=== PATIENT | male | born 1935 | race Caucasian/White ===

== ENCOUNTER 2016-10-21 15:48 | Inpatient (IN) | payer MEDICARE, OTHER ==
[~2016-10-21] VITALS: Ht 170.2 cm; Wt 79.4 kg
--- NOTE | ~2016-10-21 | HP ---
PATIENT: TIFFANY RODRIGUEZ MEDICAL RECORD: [id number] ACCOUNT: [id number] LOCATION:[address] : 35 ADMISSION DATE: 10/21/16 HISTORY AND PHYSICAL EXAMINATION ADMITTING PHYSICIAN: Dr. Frank Mcfarland. REASON FOR ADMISSION: Vomiting with hematemesis and fever. HISTORY OF PRESENT ILLNESS: The patient is an 81-year-old male of Dr. Mcfarland. He presented to on-call physician today, with complaints of being very nauseated. This morning, he vomited 3-4 times, his said he had some blood streaking in the last 2 vomitus episodes. He has had some vague upper abdominal pain as well, but no melena or bloody diarrhea. He has had increasing cough as well and fever for approximately 100 degrees Fahrenheit today. He just does not feel well and he really had difficulty getting out of the chair to come to the exam room. He has had a remote cholecystectomy and said this is unusual for him. He denies ever having a peptic ulcer before. He denies taking lots of anti-inflammatories as well. In the office, he noted to be mildly anemic with hemoglobin of 11. His creatinine was mildly elevated as well. The patient's pressure was 100/60 and it was mildly tachycardic. He is now admitted for further evaluation of hemetemesis and rule out gastrointestinal bleed. PAST MEDICAL HISTORY: Trigeminal neuralgia, CAD, osteoporosis, hyperlipidemia, IBS, diverticulosis, BPH, with history of pneumonia, adult sleep apnea, inoperable CAD, COPD. SURGICAL HISTORY: Appendectomy, hernia repair, tonsillectomy, cholecystectomy, history of cardiac catheterization in September 2012 with diffusely diseased LAD throughout its entire course, right coronary was 60% mid vessel lesion treated medically. Last echo showed an EF of 58%. HOME MEDICATIONS: Pravastatin 40 mg at h.s., terazosin 5 mg a day, levothyroxine 75 mcg p.o. daily, Tegretol 100 mg p.o. q. 12 hours, gabapentin 300 mg p.o. b.i.d., aspirin 325 mg a day, metoprolol XL 25 mg a day, isosorbide dinitrate 60 mg p.o. daily. SOCIAL HISTORY: The patient is . He never smoked, do not drink alcohol. FAMILY HISTORY: Father of stroke. Mother of old age. REVIEW OF SYSTEMS: GENERAL: He has been very fatigued today and had low-grade fever and just has not felt well. HEENT: No recent visual change, sinus congestion, or sore throat. He has chronic hearing difficulty. RESPIRATORY: He has chronic productive cough. He said Dr. Mcfarland says he has COPD. He has had no hemoptysis. Minimal sputum production. CARDIAC: No exertional rest chest pain or increasing edema. Denies palpitations recently. GASTROINTESTINAL: Nausea with recurrent vomiting for 4-5 times this morning that was fairly severe, with some blood streaked vomitus noted by his . Denies lower abdominal pain or constipation, diarrhea. GENITOURINARY: Nocturia once nightly. ENDOCRINE: Denies polyuria, polydipsia, heat or cold intolerance. HISTORY AND PHYSICAL [id number] TIFFANY RODRIGUEZ H NEUROLOGIC: Denies history of stroke that his memory is not as good as it used to be. Denies history of seizure. INTEGUMENTARY: No recent rash or itching. PSYCHIATRIC: Denies depressed mood. PHYSICAL EXAMINATION: VITAL SIGNS: Temperature 98.1, pulse 68 and regular, respirations are 16, blood pressure 115/49 with a sat of 90% on room air. GENERAL: The patient seems somewhat confused and ill appearing. HEENT: Eyes are clear. Sclerae nonicteric. Oropharynx shows dry mucous membranes. NECK: Supple, without bruits. CHEST: Clear. HEART: Regular rate without murmur or gallop. ABDOMEN: Mildly obese, soft, minimally tender in the epigastrium. Bowel sounds are active. EXTREMITIES: No CC and E. SKIN: Unremarkable. NEUROLOGIC: He is oriented to person, place, and time. Cranial nerves grossly intact. Gait was not tested due to his weakness. LABORATORY DATA: Showed hemoglobin of 11, creatinine of 1.5. UA, chest x-ray, acute abdominal series are pending. ASSESSMENT: 1. Hematemesis. 2. Gastroenteritis? 3. Anemia, chronic. 4. Hypertension, hyperlipidemia, inoperable CAD, trigeminal neuralgia, osteoporosis, obstructive sleep apnea, irritable bowel syndrome, diverticulosis. PLAN: The patient will be admitted to check serial H&H and transfuse if necessary, IV Protonix and GI consult if indicated. TRANSINT:[id number] Voice Confirmation ID: [id number] DOCUMENT ID: [id number] LEAH AVALOS MD CC: [id number] DICTATION DATE: 10/21/16 165 TELEPHOTO ENGINEER: 10/21/161950 ADM IN [place] [id number] [place] [id number]
[~2016-10-21 15:48] MED LIST: ASPIRIN325 MG PO; ATROVENT 0.06%15 ML NS; CETIRIZINE HCL5 MG PO; GABAPENTIN100 MG PO; HYDROCODONE-APA1 TAB PO; HYTRIN5 MG PO; ISOSORBIDE MONO60 M1 PO; LEVOTHYROXINE75 MCG PO; NITROSTAT0.4 MG SL; PRAVACHOL40 MG PO; TEGRETOL XR100 MG PO; TOPROL XL25 MG PO; ZPAK PO
[2016-10-21] MEDS ORDERED: TEGRETOL XR100 MG PO (16:18)
[2016-10-21 16:23] VITALS: BP 115/49; BMI 27.4
--- NOTE | 2016-10-21 16:58 | NUR ---
ADMISSION COMPLETE ON PT. ATTEMPTED TO SITE PT PIV X2 STICKS NO SUCCESS ASKED AURY TO SITE PT
[2016-10-21 17:57] LABS: ALBUMIN 3.6 g/dL (3.4-5.0); ANION GAP 16.8 mmol/L (8-16); BILIRUBIN - TOTAL 0.64 mg/dL (0.2-1.3); CALCIUM 8.3 mg/dL (8.5-10.1); CARBON DIOXIDE 24.1 mmol/L (21.0-32.0); CREATININE - SERUM 1.7 mg/dL (0.6-1.3); POTASSIUM - SERUM 4.9 mmol/L (3.5-5.1); PROTEIN - SERUM 6.5 g/dL (6.4-8.2)
--- NOTE | 2016-10-21 18:31 | NUR ---
AURY TRIED TO SITE PT X2 MORE STICKS NO SUCCESS.
--- NOTE | 2016-10-21 19:51 | NUR ---
RESUMED CARE OF PT, BACK FROM XRAY. SITTING UP IN BED, RESPIRATIONS EVEN AND UNLABORED ON ROOM AIR. 65 SR ON TELEMETRY. PLAN OF CARE DISCUSSED. CALL LIGHT IN REACH. NO NEEDS VOICED AT THIS TIME. WILL CONTINUE TO MONITOR. SEE NURSE ASSESSMENT.
[2016-10-21 20:00] VITALS: BP 137/64
--- NOTE | 2016-10-21 20:33 | NUR ---
22 GAUGE TO LEFT WRIST X 1 STICK. IV FLUIDS INITIATED. D5 1/2 NS @ 100
[2016-10-21 21:00] LABS: APPEARANCE CLEAR (CLEAR); BILIRUBIN NEGATIVE (NEGATIVE); COLOR YELLOW (YELLOW); GLUCOSE NEGATIVE (NEGATIVE); KETONE NEGATIVE (NEGATIVE); LEUKOCYTE ESTERASE NEGATIVE (NEGATIVE); NITRITE NEGATIVE (NEGATIVE); PROTEIN NEGATIVE (NEGATIVE); UROBILINOGEN NORMAL (NORMAL)
[2016-10-21 23:28] LABS: HEMATOCRIT 29.9 % (42.0-54.0); HEMOGLOBIN 10.3 g/dL (13.5-17.5)
[2016-10-22 00:49] VITALS: BP 132/62
--- NOTE | 2016-10-22 05:27 | NUR ---
CALL LIGHT IN REACH. WILL CONTINUE WITH PLAN OF CARE.
[2016-10-22 05:42] VITALS: BP 114/63
[2016-10-22 05:45] LABS: BASOPHILS 0.1 % (0.0-2.0); EOSINOPHILS 2.9 % (0-7); HEMATOCRIT 32.7 % (42.0-54.0); HEMOGLOBIN 11.2 g/dL (13.5-17.5); IMMATURE GRANULOCYTES 0.2 % (0-5); LYMPHOCYTES 12.5 % (15-50); MCH 41.8 pg (26.0-34.0); MCHC 34.3 g/dL (31.0-37.0); MONOCYTES 6.6 % (2-11); NEUTROPHILS 77.7 % (40-80); PLATELET COUNT 125 10x3/uL (130-400); RBC 2.68 10x6/uL (4.20-6.10); RDW 13.6 % (11.5-14.5); WBC 10.1 10x3/uL (4.8-10.8)
[2016-10-22 06:14] LABS: ANION GAP 14.9 mmol/L (8-16); CARBON DIOXIDE 24.2 mmol/L (21.0-32.0); CREATININE - SERUM 1.5 mg/dL (0.6-1.3)
[2016-10-22 06:18] LABS: POTASSIUM - SERUM 4.1 mmol/L (3.5-5.1)
[2016-10-22 08:22] VITALS: BP 144/61
--- NOTE | 2016-10-22 10:08 | NUR ---
TELEMETRY SB. IV PATENT. CALL LIGHT IN REACH. WILL CONT. PLAN OF CARE.
[2016-10-22 11:10] LABS: HEMATOCRIT 30.2 % (42.0-54.0); HEMOGLOBIN 10.3 g/dL (13.5-17.5)
[2016-10-22 11:46] VITALS: BP 107/52
[2016-10-22 13:27] VITALS: Ht 170.2 cm; Wt 79.4 kg
--- NOTE | 2016-10-22 14:03 | NUR ---
STOOL SPECIMEN COLLECTED AND TAKEN TO LAB. WILL MONITOR.
[2016-10-22 16:03] VITALS: BP 131/61
[2016-10-22 17:01] LABS: HEMATOCRIT 32.1 % (42.0-54.0)
[2016-10-22 20:00] VITALS: BP 137/86
[2016-10-22 23:07] LABS: HEMATOCRIT 28.8 % (42.0-54.0)
[2016-10-23] VITALS: BP 157/80
--- NOTE | 2016-10-23 01:03 | NUR ---
LYING IN BED, WITH EYES CLOSED. AT BEDSIDE. WILL CONTINUE TO MONITOR.
[2016-10-23 02:00] VITALS: BP 157/80
[2016-10-23 04:00] VITALS: BP 152/77
[2016-10-23 04:54] LABS: HEMATOCRIT 29.7 % (42.0-54.0); HEMOGLOBIN 10.2 g/dL (13.5-17.5)
--- NOTE | 2016-10-23 06:33 | NUR ---
NO CHANGES FROM PREVIOUS ASSESSMENT, CALL LIGHT IN REACH. WILL CONTINUE TO MONITOR.
[2016-10-23 07:51] VITALS: BP 152/70
[2016-10-23 11:05] LABS: HEMATOCRIT 32.2 % (42.0-54.0); HEMOGLOBIN 11.3 g/dL (13.5-17.5)
[2016-10-23 12:00] VITALS: BP 106/70
[2016-10-23] MEDS ORDERED: ZITHROMAX250 MG PO (14:13)
[2016-10-23] MEDS ORDERED: FLORAJEN3 CAPS460 MG PO (14:14)
--- NOTE | 2016-10-23 16:42 | NUR ---
CM: A/O, Patient's is at bedside, son will drive both home. Patient lives in a single level home with spouse, Charu #[phone].. Pharmacy of use is [facility]. PCP: Dr Mcfarland. No [facility]. DME: [facility]. Independent with ADL's, with spouse assist if needed. Patient and spouse deny any needs at time of DC. IMM explained to and signed @ 1500 per patient. Akilah Tony RN CM
--- NOTE | 2016-10-23 16:44 | NUR ---
IV AND TELEMETRY DCD. DC PLANS GIVEN. UNDERSTANDING VOICED. ESCORTED TO CAR BY W/C.
== END 2016-10-23 16:45 | disposition home or self-care (01) | DRG 190 ==
LOC: D.M2 15:48
PROVIDERS: Family Medicine; ADMIT Family Medicine
DX: J44.0 Chronic obstructive pulmonary disease with (acute) lower respiratory infection (principal); J18.9 Pneumonia, unspecified organism; J01.90 Acute sinusitis, unspecified; I12.9 Hypertensive chronic kidney disease with stage 1 through stage 4 chronic kidney disease, or unspecified chronic kidney disease; N18.3 Chronic kidney disease, stage 3 (moderate); D50.9 Iron deficiency anemia, unspecified; E78.5 Hyperlipidemia, unspecified; I25.10 Atherosclerotic heart disease of native coronary artery without angina pectoris; G50.0 Trigeminal neuralgia; G47.33 Obstructive sleep apnea (adult) (pediatric); K58.9 Irritable bowel syndrome, unspecified; M81.0 Age-related osteoporosis without current pathological fracture; K57.90 Diverticulosis of intestine, part unspecified, without perforation or abscess without bleeding

== ENCOUNTER 2017-10-23 22:51 | Emergency (ER) | payer MEDICARE, OTHER ==
[2016-10-22 13:27] VITALS: BMI 27.4
[~2017-10-23 22:51] MED LIST changes: +FLORAJEN3 CAPS460 MG PO; +ZITHROMAX250 MG PO
[2017-10-23 23:18] LABS: BASOPHILS 0.2 % (0-2); HEMOGLOBIN 10.1 g/dL (13.5-17.5); IMMATURE GRANULOCYTES 0.4 % (0-5); LYMPHOCYTES 20.5 % (15-50); MCH 40.1 pg (26.0-34.0); MCHC 33.7 g/dL (31.0-37.0); MEAN PLATELET VOLUME 10.1 fL (7.4-10.4); MONOCYTES 12.4 % (2-11); NEUTROPHILS 59.5 % (40-80); PLATELET COUNT 121 10x3/uL (130-400); RBC 2.52 10x6/uL (4.20-6.10); RDW 14.2 % (11.5-14.5); WBC 4.6 10x3/uL (4.8-10.8)
[2017-10-23 23:32] LABS: ALBUMIN 3.7 g/dL (3.4-5.0); ALKALINE PHOSPHATASE 99 U/L (46-116); ALT (SGPT) 29 U/L (10-68); BILIRUBIN - TOTAL 0.32 mg/dL (0.2-1.3); CALC OSMOLALITY 288 mosm/kg (275-300); CALCIUM 8.4 mg/dL (8.5-10.1); CARBON DIOXIDE 24.5 mmol/L (21.0-32.0); CHLORIDE - SERUM 109 mmol/L (98-107); CREATININE - SERUM 1.8 mg/dL (0.6-1.3); GLUCOSE 143 mg/dL (74-106); POTASSIUM - SERUM 3.9 mmol/L (3.5-5.1); PROTEIN - SERUM 6.8 g/dL (6.4-8.2); SODIUM 142 mmol/L (136-145); UREA NITROGEN 23 mg/dL (7-18); eGFR NON AFRICAN AMERICAN 38 mL/min (90-120)
[2017-10-23 23:43] LABS: CHOL - HDL RATIO 4.4 ratio (2.3-4.9); CHOLESTEROL, TOTAL 174 mg/dL (0-200); CKMB 2.3 U/L (0.0-3.6); CREATINE KINASE 137 UL (21-232); HDL CHOLESTEROL 40 mg/dL (32-96); LDL CHOLESTEROL 101 mg/dL (0-100); LDL-HDL RATIO 2.5 ratio (1.5-3.5); PRO BNP 873 pg/mL (0-450); TRIGLYCERIDE 167 mg/dL (30-200); TROPONIN-I < 0.017 ng/mL (0.000-0.060)
== END 2017-10-24 00:52 | disposition home or self-care (01) ==
LOC: D.ER 22:51
PROVIDERS: Emergency Medicine
DX: R07.9 Chest pain, unspecified (principal); R00.0 Tachycardia, unspecified; I45.10 Unspecified right bundle-branch block

== ENCOUNTER → 2020-04-15 10:45 | Outpatient (CLI) | payer MEDICARE, OTHER ==
[2016-10-22 13:27] VITALS: BMI 27.4
[2020-04-15 11:42] LABS: BASOPHILS 0.2 % (0-2); EOSINOPHILS 9.3 % (0-7); HEMATOCRIT 33.3 % (42.0-54.0); HEMOGLOBIN 10.7 g/dL (13.5-17.5); IMMATURE GRANULOCYTES 0.4 % (0-5); LYMPHOCYTES 19.3 % (15-50); MCH 32.8 pg (26.0-34.0); MCHC 32.1 g/dL (31.0-37.0); MCV 102.1 fL (80.0-100.0); MEAN PLATELET VOLUME 10.8 fL (7.4-10.4); MONOCYTES 10.2 % (2-11); NEUTROPHILS 60.6 % (40-80); PLATELET COUNT 113 10x3/uL (130-400); RBC 3.26 10x6/uL (4.20-6.10); RDW 13.5 % (11.5-14.5); WBC 4.6 10x3/uL (4.8-10.8)
[2020-04-15 12:18] LABS: ALBUMIN 3.6 g/dL (3.4-5.0); ANION GAP 12.5 mmol/L (8-16); BILIRUBIN - TOTAL 0.41 mg/dL (0.2-1.3); CALCIUM 8.4 mg/dL (8.5-10.1); CARBAMAZEPINE (TEGRETOL) 8.9 ug/mL (4.0-12.0); CARBON DIOXIDE 26.2 mmol/L (21.0-32.0); CREATININE - SERUM 1.4 mg/dL (0.6-1.3); POTASSIUM - SERUM 4.7 mmol/L (3.5-5.1); PROTEIN - SERUM 6.6 g/dL (6.4-8.2)
== END | disposition home or self-care (01) ==
LOC: D.LAB 10:45
PROVIDERS: ATTEND Psychiatry & Neurology Neurology
DX: G50.0 Trigeminal neuralgia (principal)